=== PATIENT | male | born 1960 | race Caucasian/White ===

== ENCOUNTER → 2024-01-16 | Outpatient (CLI) | payer BC ==
[2024-01-16 15:59] LABS: Anion Gap 17.9 mmol/L (4.00-12.00); Carbon Dioxide 18.1 mmol/L (21.6-31.8); Potassium 4.4 mmol/L (3.5-5.5)
[2024-01-16 16:11] LABS: Basophils # (A) 0.05 X 10*3/uL (0.00-0.10); Basophils % (A) 0.9 %; Eosinophils # (A) 0.36 X 10*3/uL (0.04-0.35); Eosinophils % (A) 6.5 %; HCT 46.1 % (39.6-50.0); HGB 15.7 g/dL (13.0-17.0); Lymphocytes # (A) 1.45 X 10*3/uL (0.90-5.00); Lymphocytes % (A) 26.2 %; MCHC 34.1 g/dL (32.0-37.0); MCV 91.1 FL (80.0-97.0); Mean Platelet Volume 10.1 FL (9.5-12.2); Monocytes # (A) 0.38 X 10*3/uL (0.20-1.00); Monocytes % (A) 6.9 %; NRBC Per 100 WBC 0 X 10*3/uL (0.00-0.01); Neutrophils # (A) 3.28 X 10*3/uL (1.80-7.70); Neutrophils % (A) 59.1 %; Platelet Count 235 X 10*3/uL (140-440); RBC 5.06 X 10*6/uL (4.40-5.60); RDW 12.4 % (11.5-14.5); WBC 5.54 X 10*3/uL (4.50-10.00)
== END | disposition home or self-care (01) ==
LOC: LABWHC1 08:12
PROVIDERS: ATTEND Orthopaedic Surgery
CPT/HCPCS: 36415; 80051; 85025; 93005

== ENCOUNTER 2024-02-09 05:41 | Day surgery (SDC) | payer BC ==
[2024-02-06 11:55] VITALS: BMI 29.0
--- NOTE | 2024-02-09 00:44 | HP ---
HISTORY AND PHYSICAL DATE OF SURGERY: 02/09/2024. HISTORY OF PRESENT ILLNESS: Joseph Bullock was seen with progressive right shoulder pain. After having treatment options discussed, he elected to proceed with right shoulder arthroscopy. Consent regarding the procedure was obtained. PAST MEDICAL HISTORY: Hypertension. PAST SURGICAL HISTORY: Left shoulder arthroscopy. DAILY MEDICATIONS: 1. Ibuprofen. 2. Losartan. ALLERGIES: None reported. SOCIAL HISTORY: Denies tobacco use. PHYSICAL EVALUATION OF THE RIGHT SHOULDER: Flexion is 130 degrees. Abduction is 130 degrees. External rotation is 50 degrees with significant weakness. He has tenderness along the anterolateral acromion and rotator cuff insertion site. Impingement is positive at 80 degrees. Drop-arm sign is positive. His distal neurovascular exam is intact. IMAGING STUDIES: Right shoulder radiographs revealed a type 2 acromion. Mild acromioclavicular joint osteoarthritis, calcific body consistent with calcific tendinitis along with cystic changes of the tuberosity. Right shoulder MRI revealed a labral tear, paralabral cyst, acromioclavicular joint osteoarthritis with impingement, partial rotator cuff tendon tear. IMPRESSION: 1. Right shoulder impingement with labral tear and paralabral cyst. 2. Right shoulder partial rotator cuff tear. 3. Right shoulder acromioclavicular joint osteoarthritis. 4. Hypertension. PLAN: Right shoulder arthroscopy with subacromial decompression, debridement of labral tear, excision of paralabral cyst, subacromial decompression, possible rotator cuff repair, Jerry procedure. MMODL / IJN: [id number] /
[2024-02-09] MEDS ORDERED: LIDOCAINE 1% (10MG/ML) FOR IV START INTRADERMA PRN (06:08)
[2024-02-09] MEDS ORDERED: droPERidol 5 MG/2 ML VIAL IVP ONE (06:08)
[2024-02-09] MEDS: IV FLUID CONTINUATION 1,000 ML IV ONE (06:29)
[2024-02-09] MEDS: LACTATED RINGERS 1,000 ML IV SCH (06:29)
[2024-02-09] MEDS: DEXAMETHASONE SOD PHOSPHATE 4 MG/ML 1 ML VIAL IV ONE (06:37)
[2024-02-09] MEDS: ONDANSETRON 4 MG/2 ML VIAL IVP STA (06:40)
[2024-02-09] MEDS: MIDAZOLAM 2 MG/2 ML VIAL IVP ONE (06:55)
[2024-02-09] MEDS ORDERED: HYDROmorphone 0.5 MG/0.5 ML SYRINGE IVP PRN (07:00)
[2024-02-09] MEDS ORDERED: SUCCINYLCHOLINE CHLORIDE 200 MG/10 ML VIAL IV ONE (07:24)
[2024-02-09] MEDS ORDERED: PROPOFOL 10 MG/ML 20 ML VIAL IV ONE (07:24)
[2024-02-09] MEDS ORDERED: LIDOCAINE 1% INJ 10MG/ML (20 ML MDV) ONE (07:24)
[2024-02-09] MEDS ORDERED: ROPIVACAINE 5 MG/ML 30 ML VIAL ONE (07:24)
[2024-02-09] MEDS ORDERED: DEXAMETHASONE SOD PHOSPHATE 4 MG/ML 1 ML VIAL ONE (07:24)
[2024-02-09] MEDS ORDERED: MIDAZOLAM 2 MG/2 ML VIAL ONE (07:24)
[2024-02-09] MEDS ORDERED: fentaNYL (PF) 50 MCG/ML 2 ML AMP ONE (07:24)
--- NOTE | 2024-02-09 09:00 | P.OP ---
Date of Procedure: 02/09/24 Preoperative Diagnosis: Right shoulder impingement Postoperative Diagnosis: 1. Right shoulder rotator cuff tear 2. Right shoulder impingement 3. Right shoulder partial biceps tendon tear/bicipital tendinitis 4. Right shoulder acromioclavicular joint osteoarthritis 5. Right shoulder labral tear Procedure(s) Performed: 1. Right shoulder arthroscopic rotator cuff repair 2. Right shoulder arthroscopic subacromial decompression 3. Right shoulder arthroscopic biceps tenodesis 4. Right shoulder arthroscopic Jerry procedure 5. Right shoulder arthroscopic debridement labral tear Implants: 2Arthrex 4.75 swivel lock anchors Anesthesia: GETA, regional (Interscalene block) Surgeon: Prieto Mandel Plumbing Manager #1: Aaron Blount Estimated Blood Loss (ml): 8 Pathology: none sent Condition: stable Disposition: PACU Indications for Procedure: 63-year-old patient seen with progressive right shoulder pain. After having treatment options discussed, he elected to proceed with arthroscopy. Operative Findings: See description of procedure Description of Procedure: Patient underwent an interscalene block by department of anesthesia. The patient was then taken to the operative suite. The patient underwent a general anesthetic by the department of anesthesia. The patient was placed into a lateral position and secured. There was appropriate padding of the bony prominence. Right shoulder was then prepped and draped in normal sterile orthopedic fashion. We placed the extremity in 10 pounds of longitudinal traction. A posterior incision was now made for a posterior working portal site. The trocar and cannula were inserted into the glenohumeral joint. Arthroscopy was initiated. Spinal needle was now inserted anteriorly, to ascertain the anterior working portal site. An incision was now made in that area, a trocar was inserted followed by a probe. There was superficial tearing of the superior labrum. There was no significant chondromalacia present. There was partial tearing as well as hyperemia long head biceps tendon consistent with bicipital tendinitis. I explored the recess and could not appreciate a spinal glenoid notch cyst. I debrided the superficial labral tear getting down to stable labral tissue. I decided to proceed with arthroscopic biceps tenodesis. I placed a cannula through the anterior portal site. I now with the assistance of Kiko REDDY passed a loop and tack type stitch to the biceps tendon and release it from the superior labral anchor. I now with the assistance of Kiko REDDY partial hole at the interval for insertion of an anchor. The suture limb was passed through the eyelet of an Arthrex 4.75 swivel lock anchor. I placed the eyelet into the preplanned hole, held in position while Kiko REDDY tensioned the suture and deployed the anchor with good fixation noted. The residual suture limb was clipped. There was a stable appearing biceps tenodesis present. Instruments were now removed from the glenohumeral joint. Utilizing the posterior working portal site, the trocar and cannula were inserted into the subacromial space. Arthroscopy initiated. I made an incision 2 fingerbreadths lateral to the acromion. I introduced my trocar followed by my ArthroCare ablator. I now began ablating thick subacromial bursal tissue, which exposed the undersurface of the anterior acromion. There was diminished subacromial space. There was a very prominent anterior acromion. A motorized bur was introduced and a subacromial decompression was performed. I also excised some osteophytes off the inferior aspect of the distal clavicle. The AC joint was visualized and noted to be fairly arthritic. The motorized bur was introduced in the anterior portal site and a Jerry procedure was performed without difficulty removing 8 mm off the distal clavicle, decompressing the AC joint nicely. I turned my attention to the rotator cuff. There was a 1 cm rotator cuff tear. I debrided the margins getting down to stable tendon tissue. The defect/tear did measure about 1.5 cm and was freely mobile over the footprint. I abraded the footprint with a motorized bur. With the assistance of Kiko REDDY I passed 3 everted mattress sutures through good bites of rotator cuff tendon. I punched a hole in the footprint area for insertion of an anchor. All 6 limbs of suture were passed through the eyelet of an Arthrex 4.75 swivel lock anchor. I placed the eyelet into the prepunched hole. I held in position while Kiko REDDY tensioned all 6 limbs of suture and deployed the anchor with good fixation noted. All residual suture limbs were now clipped. We had good compression of the tendon along the entire footprint. Instruments now removed from the portal sites. All portal sites were approximated with nylon suture. Sterile dressings were applied followed by a shoulder immobilizer. Aaron REDDY assisted in this complex case. The patient was awakened, transferred to a bed, and taken to recovery in stable condition.
[2024-02-09 09:09] VITALS: TEMP 97
[2024-02-09 10:26] VITALS: BP 120/84; PULSE 67; RESP 18
--- NOTE | 2024-02-10 07:13 | P.ANPRN ---
Procedure Note - Anesthesia - Nerve Block Performed Right Interscalene Single Time Out Performed: Yes Date of Procedure: 02/10/24 Procedure Start Time: 06:58 Procedure Stop Time: 07:02 Location of Patient: PreOp Indication: Acute Post-Operative Pain, Requested by Surgeon Sedation Type: Sedate with meaningful contact maintained Preparation: Sterile Prep Position: Supine Needle Types: Pajunk Needle Gauge: 21 Ultrasound used to visualize needle placement: Yes Ultrasound used to observe medication spread: Yes Blood Aspirated: No Pain Paresthesia on Injection Noted: No Resistance on Injection: Normal Image Stored and Saved: Yes Events: Uneventful and Well Tolerated (Ropivacaine 0.5% 20 cc plus dexamethasone 4 mg)
== END 2024-02-09 10:42 | disposition home or self-care (01) ==
LOC: OR 05:41
PROVIDERS: ATTEND Orthopaedic Surgery
DX: S43.491A Other sprain of right shoulder joint, initial encounter (principal); S46.211A Strain of muscle, fascia and tendon of other parts of biceps, right arm, initial encounter; M75.111 Incomplete rotator cuff tear or rupture of right shoulder, not specified as traumatic; M75.41 Impingement syndrome of right shoulder; M19.011 Primary osteoarthritis, right shoulder; I10 Essential (primary) hypertension; F12.90 Cannabis use, unspecified, uncomplicated; F41.9 Anxiety disorder, unspecified; F31.9 Bipolar disorder, unspecified; Z79.899 Other long term (current) drug therapy; X58.XXXA Exposure to other specified factors, initial encounter
CPT/HCPCS: 64415; 29824; 29827; 29828; 29826; C1713 ×3; J2250; J0330; J1100; J0690; J2405; J2003; J3010; J2795; J2704